=== PATIENT | male | born 1965 | race Caucasian/White ===

== ENCOUNTER 2018-01-21 02:22 | Emergency (ER) | payer OTHER ==
[~2018-01-21] VITALS: Ht 170.2 cm; Wt 102.5 kg
[2018-01-21 02:34] VITALS: Ht 170.2 cm; Wt 102.5 kg
[2018-01-21] MEDS ORDERED: ROBAXIN500 MG PO ×2 (05:10)
[2018-01-21 05:52] VITALS: BP 137/88
== END 2018-01-21 05:52 | disposition home or self-care (01) ==
LOC: ED 02:22
DX: M25.512 Pain in left shoulder (principal); Z98.52 Vasectomy status
CPT/HCPCS: J3010; J3490; Q0092

== ENCOUNTER 2018-10-27 08:10 | Emergency (ER) | payer OTHER ==
[~2018-10-27] VITALS: Ht 170.2 cm; Wt 98.9 kg
[~2018-10-27 08:10] MED LIST: ROBAXIN500 MG PO
[2018-10-27 08:16] VITALS: Ht 170.2 cm; Wt 98.9 kg
[2018-10-27 09:03] LABS: BASOPHIL % 0.5 % (0-2); PLATELET COUNT 174 x10^3mcL (130-400); RED CELL DISTRIBUTION WIDTH 13.6 % (11.5-14.5)
[2018-10-27 09:12] LABS: CALCIUM 9.2 mg/dL (8.5-10.1); CARBON DIOXIDE 25.2 mmol/L (21-32); CHLORIDE SERUM 104 mmol/L (98-107); CREATININE SERUM 1.1 mg/dL (0.7-1.3); GFR1 > 60 mL/min; GLUCOSE SERUM 92 mg/dL (74-106); POTASSIUM SERUM 4.1 mmol/L (3.5-5.1); SODIUM SERUM 142 mmol/L (136-145)
[2018-10-27 09:16] LABS: ALKALINE PHOSPHATASE 58 U/L (46-116); ALT/SGPT 18 U/L (16-63); AST/SGOT 16 U/L (15-37); BILIRUBIN TOTAL 1.8 mg/dL (0.20-1.00); MAGNESIUM 2.2 mg/dL (1.8-2.4); TOTAL PROTEIN, SERUM 7.4 g/dL (6.4-8.2)
[2018-10-27 09:30] LABS: T3 TOTAL 1.29 ng/mL
[2018-10-27 09:34] LABS: AMPHETAMINE QUAL UR NONE DETECTED (See below)
[2018-10-27 09:40] LABS: FREE T4 1.3 ng/dL (0.76-1.46); FREE THYROXINE INDEX 3.8 ug/dL (1.4-4.5); T4(THYROXINE) 10.9 ug/dL (4.7-13.3)
[2018-10-27 11:23] VITALS: BP 124/84
== END 2018-10-27 11:33 | disposition home or self-care (01) ==
LOC: ED 08:10
PROVIDERS: Emergency Medicine
DX: R42 Dizziness and giddiness (principal); G47.00 Insomnia, unspecified; V49.9XXA Car occupant (driver) (passenger) injured in unspecified traffic accident, initial encounter; Y93.89 Activity, other specified; Y92.89 Other specified places as the place of occurrence of the external cause; Y99.8 Other external cause status
CPT/HCPCS: 36415; 84439; Q0092